=== PATIENT | female | born 1990 | race Caucasian/White ===

== ENCOUNTER 2017-06-30 10:39 | Emergency (ER) | payer OTHER, SELFPAY ==
[2017-06-30 10:40] VITALS: BP 110/64; PULSE 75; RESP 16; TEMP 36.6; O2SAT 100; BMI 23.2
--- NOTE | 2017-06-30 11:12 | ED.VISSUMM ---
- ER Visit Summary Date of Service: 06/30/17 Chief Complaint: [] Pelvic pain with menstrual cycle History of Present Illness: The patient is a 27 F [] and her normal menstrual cycle on time yesterday she has had heavy vaginal bleeding and pelvic pain, she has had this before she has been seen by her chief diversity officer she has had an ultrasound she believes other testing at one point time they thought she might have endometritis, that was not pursued, her last period was very light this was very heavy after she arrived to the emergency department her pain has resolved practically and she is now having only normal menstrual cycle type symptoms nothing severe, she did not take anything at home she denies being Physical Examination: [] Distress her vitals are within normal range the abdomen is soft there is no rebound guarding organomegaly she points to the lower abdominal regions bilaterally as where the pain was the lungs are clear heart tones are normal the back is unremarkable upper lower extremities unremarkable the rest of exams unremarkable Test Results: [] Emergency Department Course and Treatment: [] Be obtaining screening labs we discussed pelvic exam she will defer that for now as she is feeling better and will proceed from there\ EG is negative all the labs are generally unremarkable the urine appears contaminated with red cells on reevaluation she is resting comfortably she remains asymptomatic with no severe pain just what she describes her normal menstrual cycle symptoms She understands the above she was discharged on Naprosyn I explained her she follow with her chief diversity officer next few days return for change in symptoms and she will do so Treatment Plan: [] Disposition: [] Stable home Impression: [] Pelvic pain related to menstrual cycle This note was generated with [employer] dictation software. It may contain incorrect words, spelling, and punctuation that were not noted in review of the chart prior to signing ED Disposition - Plan for ED Patient: Chief Complaint: Abd Pain
[2017-06-30 11:16] LABS: Absolute Lymphocyte Count 1.11 X10^3/ul (0.83-4.51); Absolute Neutrophil Count 9.7 X10^3/uL (2.0-7.7); Basophil# 0.03 X10^3/uL; Basophil% 0.3 % (0-1); Eosinophil# 0.05 X10^3/uL; Eosinophils% 0.4 % (0-5); Hematocrit 37.8 % (37-47); Hemoglobin 12.4 g/dl (12.0-15.0); Lymphocyte # 1.11 X10^3/ul (4.0); Lymphocyte % 9.7 % (19-41); Mean Corp Hgb Conc 32.8 g/gl (32-36); Mean Corpuscular Hgb 27.7 pg (27.0-32.0); Mean Corpuscular Volume 84.4 fL (81-99); Mean Platelet Vol. 10.4 fl (6.2-12.0); Monocyte# 0.54 X10^3/uL; Monocyte% 4.7 % (0-10); Neutrophil # 9.71 X10^3/uL (2.7-7.7); Neutrophil % 84.7 % (47-70); POSITIVE COUNT NO; POSITIVE DIFFERENTIAL NO; POSITIVE MORPHOLOGY NO; Platelet Count 280 K/mm3 (150-450); RBC Distribution Width CV 13.3 % (11.6-14.6); RBC Distribution Width SD 40.9 fl (35.1-43.9); Red Blood Count 4.48 M/mm3 (4.2-5.4); White Blood Count 11.5 K/mm3 (4.4-11.0)
[2017-06-30 11:18] VITALS: BP 115/70; PULSE 70; RESP 14; O2SAT 98
[2017-06-30 11:28] LABS: Mucous, Urine 0 SEEN /hpf (<or=2+)
[2017-06-30 11:31] LABS: AST(SGOT) 12 U/L (15-37); Alanine Aminotransfer ALT/SGPT 19 U/L (13-56); Albumin, Serum 3.8 g/dL (3.2-5.0); Alkaline Phosphatase 39 U/L (45-117); Anion Gap 9 (5-15); BUN 11 mg/dL (7-18); BUN/Creat Ratio 13.9 RATIO (10-20); Bilirubin, Direct 0.19 mg/dL (0.00-0.30); Calcium,Total 8.2 mg/dL (8.5-10.1); Chloride 106 mmol/L (98-107); Creatinine, Serum 0.79 mg/dL (0.55-1.02); EST Glomerular Filtration Rate 91 mL/min (>60); Est Glom Filt Rate - Afr Amer 110 mL/min (>60); Estimated Creatinine Clearance 86.53 ml/min; Globulin 2.8 g/dL (2.2-4.2); Glucose 110 mg/dL (74-106); Lipase 159 U/L (73-393); Potassium 3.9 mmol/L (3.5-5.1); Protein, Total 6.6 g/dL (6.4-8.2); Sodium Level 142 mmol/L (136-145)
[2017-06-30 11:32] LABS: Color, Urine Yellow (Yellow); Glucose, Dipstick Normal (Normal); Ketone-Dipstick Negative (Negative); Leukocyte Esterase-Dipstick 25 /ul (Negative); Nitrite-Dipstick Negative (Negative); Occult Blood-Urine 250 /ul (Negative); Protein-Dipstick 15 mg/dl (Negative); Urine Bilirubin Dipstick Negative (Negative); Urine Clarity Clear (Clear); Urine Urobilinogen Normal (Normal)
[2017-06-30 11:40] LABS: Pregnancy, Serum, hCG Quali. NEGATIVE Negative (0-9 Nonpreg)
[2017-06-30 11:42] LABS: Amorphous Sediment 1+; Bacteria 1+ /hpf (None Seen); Red Blood Cells-Urine 10-25 SEEN /hpf (0-5); Squamous Epithelial Cells - UA 0-5 SEEN /hpf (5-10); White Blood Cells 0-5 SEEN /hpf (0-5)
--- NOTE | 2017-06-30 12:28 | ED.DEP ---
ED Disposition - Plan for ED Patient: Chief Complaint: Abd Pain Instructions: ED Pelvic Pain [facility] Prescriptions: Naproxen [Naprosyn] 500 mg PO BID PRN #20 tab Referrals: David Smyth DO [Primary Care Provider] -
[2017-06-30 12:57] VITALS: BP 130/71; PULSE 78; RESP 14; O2SAT 98
== END 2017-06-30 12:58 | disposition home or self-care (01) ==
LOC: ED 12:00
PROVIDERS: Emergency Provider Emergency Medicine; Family Provider Family Medicine; PCP Family Medicine
DX: N94.6 Dysmenorrhea, unspecified (principal)
CPT/HCPCS: 80048; 80076; 81001; 83690; 84703; 85025; 99283; A4216

== ENCOUNTER → 2018-06-07 15:51 | Outpatient (CLI) | payer OTHER, SELFPAY ==
[2018-06-06 17:35] VITALS: BMI 23.2
== END ==
PROVIDERS: Family Provider Family Medicine; PCP Family Medicine; Referring Provider Physician Assistant Surgical; Visit Provider Physician Assistant Surgical
DX: J02.9 Acute pharyngitis, unspecified (principal)
CPT/HCPCS: 87081

== ENCOUNTER → 2019-09-10 | Outpatient (CLI) | payer SELFPAY ==
[2018-06-06 17:35] VITALS: BMI 23.2
== END | disposition home or self-care (01) ==
PROVIDERS: PCP Family Medicine; Referring Provider Family Medicine; Visit Provider Family Medicine
DX: R19.7 Diarrhea, unspecified (principal)
CPT/HCPCS: 87493; 87506

== ENCOUNTER → 2020-03-10 12:54 | Outpatient (CLI) | payer SELFPAY ==
[2018-06-06 17:35] VITALS: BMI 23.2
--- NOTE | 2020-03-10 13:00 | VDLE_ITS ---
Reason For Study: LLE PAIN Procedure LEFT This is a venous duplex using B-mode, color CFV is compressible, spontaneous, phasic, flow and spectral Doppler. competent, and demonstrates normal Exam performed in department. augmentation. The exam was diagnostic. FV is compressible, spontaneous, phasic, A preliminary report was called and/or faxed competent and demonstrates normal to Syeda Pierce [employer] @ 1:25 pm.@ augmentation. [phone]. POP V is compressible, spontaneous, phasic, competent and demonstrates normal augmentation. T/P Trunk is compressible. PTV is compressible. LT PerV is compressible. GSV is noncompresible and dilated for a small segment on anterior mid simon. Balance of GSV is patent. Interpretation Summary Deep veins of the left lower extremity are patent and compressible segmentally. There is no evidence of left lower extremity deep vein thrombosis. Valvular competence appears intact within the proximal deep venous system on the left . Acute superficial thrombophlebitis is noted in a short segment of the left great saphenous vein in the left calf, but is otherwise patent and compressible elsewhere. Ordering Physician: Syeda Pierce Referring Physician: Dvaid Terry Performed By: Mayte Mcgrath, EDWARDO, RVT
== END ==
PROVIDERS: PCP Family Medicine; Referring Provider Nurse Practitioner Family; Visit Provider Nurse Practitioner Family
DX: M79.662 Pain in left lower leg (principal)
CPT/HCPCS: 93971

== ENCOUNTER 2020-07-04 09:09 | Outpatient (RCR) | payer MEDICARE, SELFPAY ==
[2018-06-06 17:35] VITALS: BMI 23.2
== END 2020-09-16 23:59 ==
LOC: IMMUN 09:09
PROVIDERS: Visit Provider Family Medicine
DX: Z23 Encounter for immunization (principal)
CPT/HCPCS: 0001A; 0002A; 91300

== ENCOUNTER 2022-08-02 02:50 | Outpatient (CLI) | payer SELFPAY ==
[2022-08-02 03:08] VITALS: BMI 34.3
[2022-08-02 03:23] VITALS: BP 121/89; PULSE 97; TEMP 36.8
[2022-08-02 04:25] LABS: Hematocrit 38.6 % (37-47); Hemoglobin 12.4 g/dL (12.0-15.0); Mean Corp Hgb Conc 32.1 g/dL (32-36); Mean Corpuscular Hgb 27.4 pg (27.0-32.0); Mean Corpuscular Volume 85.4 fL (81-99); Mean Platelet Vol. 13.1 fl (6.2-12.0); Platelet Count 143 K/mm3 (150-450); RBC Distribution Width CV 15.8 % (11.6-14.6); RBC Distribution Width SD 47.7 fl (35.1-43.9); Red Blood Count 4.52 M/mm3 (4.2-5.4); White Blood Count 16.2 K/mm3 (4.4-11.0)
[2022-08-02] MEDS: 0.9% Saline Lock 10 ML Syringe IV (04:43)
[2022-08-02] MEDS: Ondansetron 8 MG Tablet 4 MG PO (04:43)
[2022-08-02 04:50] LABS: ALB/GLOB Ratio 0.6 RATIO (0.9-2.4); AST(SGOT) 16 U/L (15-37); Alanine Aminotransfer ALT/SGPT 16 U/L (13-56); Albumin, Serum 2.6 g/dL (3.2-5.0); Alkaline Phosphatase 288 U/L (45-117); Anion Gap 7 (5-15); BUN 14 mg/dL (7-18); BUN/Creat Ratio 15.3 RATIO (10-20); Calcium,Total 9.8 mg/dL (8.5-10.1); Chloride 107 mmol/L (98-107); Creatinine, Serum 0.91 mg/dL (0.55-1.02); EST Glomerular Filtration Rate 75 mL/min (>60); Est Glom Filt Rate - Afr Amer 91 mL/min (>60); Estimated Creatinine Clearance 106.04 ml/min; Globulin 4.1 g/dL (2.2-4.2); Glucose 94 mg/dL (74-106); Lipase 28 U/L (13-75); Potassium 3.8 mmol/L (3.5-5.1); Protein, Total 6.7 g/dL (6.4-8.2); Sodium Level 135 mmol/L (136-145)
[2022-08-02 05:06] LABS: Mucous, Urine 0 SEEN /hpf (<or=2+); Red Blood Cells-Urine 0 SEEN /hpf (0-5)
[2022-08-02 05:23] LABS: Color, Urine Yellow (Yellow); Glucose, Dipstick Normal (Normal); Ketone-Dipstick 5 mg/dl (Negative); Leukocyte Esterase-Dipstick 25 /ul (Negative); Nitrite-Dipstick Negative (Negative); Occult Blood-Urine Negative /ul (Negative); Protein-Dipstick 30 mg/dl (Negative); Urine Clarity Clear (Clear); Urine Urobilinogen Normal (Normal); Urine pH 6.5 (5.0 - 8.0)
[2022-08-02 05:32] LABS: Urine Bilirubin Dipstick 1 mg/dL (Negative)
[2022-08-02 05:36] LABS: Bacteria 2+ /hpf (None Seen); Squamous Epithelial Cells - UA 10-25 SEEN /hpf (5-10); White Blood Cells 0-5 SEEN /hpf (0-5)
--- NOTE | 2022-08-02 07:21 | OB.TRI.PN_ITS ---
Progress Notes Date of Service: 08/02/22 Progress Note: Patient presents for triage evaluation secondary to nausea vomiting FHT: 125-130 Moderate variability reactive no decelerations category I tracing [place]: q 2-5 Contractions Assessment and plan: nausea and vomiting false labor mild dehydration no cervical change Reactive NST, reassuring maternal and status patient discharged to home to follow-up as scheduled recommend oral hydration, urine culture sent. See problem list details for additional plan information. Laboratory Studies: Laboratory Tests 08/02/22 08/02/22 08/02/22 Range/Units 04:35 04:15 04:15 WBC 16.2 H (4.4-11.0) K/mm3 RBC 4.52 (4.2-5.4) M/mm3 Hgb 12.4 (12.0-15.0) g/dL Hct 38.6 (37-47) % MCV 85.4 (81-99) fL MCH 27.4 (27.0-32.0) pg MCHC 32.1 (32-36) g/dL RDW Std Deviation 47.7 H (35.1-43.9) fl RDW Coeff of Lillian 15.8 H (11.6-14.6) % Plt Count 143 L (150-450) K/mm3 MPV 13.1 H (6.2-12.0) fl Sodium 135 L (136-145) mmol/L Potassium 3.8 (3.5-5.1) mmol/L Chloride 107 (98-107) mmol/L Carbon Dioxide 21.0 (21.0-32.0) mmol/L Anion Gap 7 (5-15) BUN 14 (7-18) mg/dL Creatinine 0.91 (0.55-1.02) mg/dL Estim Creat Clear Calc 106.04 ml/min Est GFR (MDRD) Af Amer 91 (>60) mL/min Est GFR (MDRD) Non-Af 75 (>60) mL/min BUN/Creatinine Ratio 15.3 (10-20) RATIO Glucose 94 (74-106) mg/dL Calcium 9.8 (8.5-10.1) mg/dL Total Bilirubin 0.40 (0.20-1.00) mg/dL AST 16 (15-37) U/L ALT 16 (13-56) U/L Alkaline Phosphatase 288 H (45-117) U/L Total Protein 6.7 (6.4-8.2) g/dL Albumin 2.6 L (3.2-5.0) g/dL Globulin 4.1 (2.2-4.2) g/dL Albumin/Globulin Ratio 0.6 L (0.9-2.4) RATIO Lipase 28 (13-75) U/L Urine Color Yellow (Yellow) Urine Clarity Clear (Clear) Urine pH 6.5 (5.0 - 8.0) Ur Specific [place] 1.020 (1.002-1.030) Urine Protein 30 H (Negative) mg/dl Urine Glucose (UA) Normal (Normal) mg/dl Urine Ketones 5 H (Negative) mg/dl Urine Occult Blood Negative (Negative) /ul Urine Nitrite Negative (Negative) Urine Bilirubin 1 H (Negative) mg/dL Urine Urobilinogen Normal (Normal) mg/dl Ur Leukocyte Esterase 25 H (Negative) /ul Urine RBC 0 SEEN (0-5) /hpf Urine WBC 0-5 SEEN (0-5) /hpf Ur Squamous Epith Cells 10-25 SEEN (5-10) /hpf Urine Bacteria 2+ (None Seen) /hpf Urine Mucus 0 SEEN (<or=2+) /hpf Charges/Coding Procedures Urinary/Genital [id number]: [id number] non-stress test Interp Assessment & Plan (1) Nausea/vomiting in :
== END 2022-08-02 06:40 | disposition home or self-care (01) ==
LOC: WPOUT 02:57 → WP 02:58
PROVIDERS: Obstetrics & Gynecology; Visit Provider Registered Nurse
DX: O47.9 False labor, unspecified (principal); O21.9 Vomiting of pregnancy, unspecified; O99.280 Endocrine, nutritional and metabolic diseases complicating pregnancy, unspecified trimester; E86.0 Dehydration; Z79.82 Long term (current) use of aspirin; Z3A.00 Weeks of gestation of pregnancy not specified
CPT/HCPCS: 36415; 59025; 59050; 80053; 81001; 83690; 85027; 87086; 87088; 99221; A4216; G0378

== ENCOUNTER → 2025-02-20 | Outpatient (CLI) | payer OTHER, SELFPAY ==
[2025-02-20 16:31] LABS: Hematocrit 44.2 % (37-47); Hemoglobin 14.7 g/dL (12.0-15.0); Immature Granulocytes Count 0.010 X10^3/uL (0.0-0.0); Mean Corp Hgb Conc 33.3 g/dL (32-36); Mean Corpuscular Volume 84.2 fL (81-99); Mean Platelet Vol. 10.6 fl (6.2-12.0); NRBC Flagged by Analyzer 0 % (0-5); Platelet Count 339 K/mm3 (150-450); RBC Distribution Width CV 13.2 % (11.6-14.6); RBC Distribution Width SD 40.8 fl (35.1-43.9); Red Blood Count 5.25 M/mm3 (4.2-5.4); White Blood Count 6.2 K/mm3 (4.4-11.0)
[2025-02-20 17:51] LABS: AST(SGOT) 18 U/L (<=31); Alanine Aminotransfer ALT/SGPT 14 U/L (<=34); Albumin, Serum 4.4 g/dL (3.5-5.0); Alkaline Phosphatase 52 U/L (35-104); Anion Gap 9 (5-15); BUN 13 mg/dL (4-19); BUN/Creat Ratio 14.9 RATIO (10-20); Calcium,Total 9.6 mg/dL (7.6-11.0); Carbon Dioxide 27.4 mmol/L (21.0-32.0); Chloride 103 mmol/L (98-108); Globulin 2.3 g/dL (2.2-4.2); Glucose 76 mg/dL (70-99); Potassium 4.2 mmol/L (3.3-5.1)
== END | disposition home or self-care (01) ==
LOC: LABSPEC 16:14
PROVIDERS: Referring Provider Nurse Practitioner Family; Visit Provider Nurse Practitioner Family
DX: R53.82 Chronic fatigue, unspecified (principal); F32.A Depression, unspecified; R42 Dizziness and giddiness; R10.9 Unspecified abdominal pain; R11.0 Nausea; R19.7 Diarrhea, unspecified
CPT/HCPCS: 80053; 85025